=== PATIENT | male | born 1980 | race African-American/Black ===

== ENCOUNTER 2016-11-11 18:15 | Emergency (ER) | payer OTHER ==
[~2016-11-11] VITALS: Ht 172.7 cm; Wt 81.3 kg
[2016-11-11 18:18] VITALS: BP 186/98; PULSE 130; RESP 17; TEMP 99.2; O2SAT 98
[2016-11-11] MEDS ORDERED: IBUPROFEN 800 MG TAB PO ONE (19:45)
[2016-11-11] MEDS ORDERED: SODIUM CHLOR 0.9% 1000 ML INJ 1,000 ML IV ONE (19:45)
--- NOTE | 2016-11-11 19:56 | PD ---
HPI Chief Complaint: Cold / Flu Symptoms Time Seen by Provider: 19:52 Travel History International Travel<30 days: No Contact w/Intl Traveler<30days: No Traveled to known affect area: No History of Present Illness HPI 36-year-old black male presents to emergency department accompanied by significant other for evaluation of sore throat and fever. He has been sick now for nearly 2 weeks. He has had subjective fever and chills, headache, sore throat, cough, congestion, occasional wheezing, nausea, myalgias, arthralgias and general malaise. He denies any ear pain. No vomiting. No abdominal pain. No dysuria or frequency. His significant other who is a pharmacist at [employer] states that she is concerned because he has a history of uncontrolled hypertension and hypothyroidism which may be compounding his illness. She is requesting laboratory testing. [facility] Past Medical History Narrative Medical Hypertension, hypothyroidism Tetanus Vaccination: < 5 Years Past Surgical History Surgical History: No Previous Surgery Social History Alcohol Use: Yes Tobacco Use: No Allergies-Medications (Allergen,Severity, Reaction): Coded Allergies: No Known Allergies (Unverified , 11/11/16) Reported Meds & Prescriptions Reported Meds & Active Scripts Active No Active Prescriptions or Reported Medications Review of Systems Except as stated in HPI: all other systems reviewed are Neg Physical Exam Narrative GENERAL: Well-developed, well-nourished in no apparent distress. Nontoxic appearing. HEAD: Normocephalic, atraumatic. EYES: Pupils equal round and reactive. Extraocular motions intact. No scleral icterus. No injection or drainage. ENT: Nose clear. Throat mild erythema, no tonsillar hypertrophy or exudate. Uvula midline. Airway patent. NECK: Trachea midline. Supple, nontender, moves head freely. No central bony tenderness or spasm. CARDIOVASCULAR: Regular tachycardic Rate and rhythm without murmurs, gallops, or rubs. RESPIRATORY: Clear to auscultation. Breath sounds equal bilaterally. No wheezes , rales, or rhonchi. GASTROINTESTINAL: Abdomen soft, non-tender, nondistended. No hepato-splenomegaly , or palpable masses. No guarding. EXTREMITIES: No clubbing, cyanosis, or edema. No joint tenderness. BACK: Nontender without deformity. No flank tenderness. NEUROLOGICAL: Awake, alert and oriented x 3 .Cranial nerves grossly intact. Motor and sensory grossly within normal limits. Normal speech. Data Data Last Documented VS Vital Signs Date Time Temp Pulse Resp B/P Pulse Ox O2 Delivery O2 Flow Rate FiO2 11/11/16 21:37 96 18 128/82 98 Room Air 11/11/16 18:18 99.2 Orders Complete Blood Count With Diff (11/11/16 19:31) Comprehensive Metabolic Panel (11/11/16 19:31) Group A Rapid Strep Screen (11/11/16 19:31) Influenzae A/B Antigen (11/11/16 19:31) Thyroid Stimulating Hormone (11/11/16 19:31) Ibuprofen (Motrin) (11/11/16 19:45) Sodium Chlor 0.9% 1000 Ml Inj (Ns 1000 M (11/11/16 19:45) Strep Culture (Group A) (11/11/16 20:15) Labs Laboratory Tests Test 11/11/16 20:15 White Blood Count 8.9 TH/MM3 Red Blood Count 4.95 MIL/MM3 Hemoglobin 15.0 GM/DL Hematocrit 43.5 % Mean Corpuscular Volume 87.9 FL Mean Corpuscular Hemoglobin 30.4 PG Mean Corpuscular Hemoglobin 34.5 % Concent Red Cell Distribution Width 12.6 % Platelet Count 255 TH/MM3 Mean Platelet Volume 9.5 FL Neutrophils (%) (Auto) 84.6 % Lymphocytes (%) (Auto) 10.8 % Monocytes (%) (Auto) 4.4 % Eosinophils (%) (Auto) 0.0 % Basophils (%) (Auto) 0.2 % Neutrophils # (Auto) 7.5 TH/MM3 Lymphocytes # (Auto) 1.0 TH/MM3 Monocytes # (Auto) 0.4 TH/MM3 Eosinophils # (Auto) 0.0 TH/MM3 Basophils # (Auto) 0.0 TH/MM3 CBC Comment DIFF FINAL Differential Comment Sodium Level 137 MEQ/L Potassium Level 3.5 MEQ/L Chloride Level 103 MEQ/L Carbon Dioxide Level 25.5 MEQ/L Anion Gap 9 MEQ/L Blood Urea Nitrogen 12 MG/DL Creatinine 0.86 MG/DL Estimat Glomerular Filtration 122 ML/MIN Rate Random Glucose 95 MG/DL Calcium Level 9.2 MG/DL Total Bilirubin 0.2 MG/DL Aspartate Amino Transf 20 U/L (AST/SGOT) Alanine Aminotransferase 31 U/L (ALT/SGPT) Alkaline Phosphatase 74 U/L Total Protein 8.2 GM/DL Albumin 4.2 GM/DL Thyroid Stimulating Hormone 1.920 uIU/ML 3rd Gen MDM Medical Decision Making Medical Screen Exam Complete: Yes Emergency Medical Condition: Yes Medical Record Reviewed: Yes Interpretation(s) Rapid strep: Negative for group A strep. Influenza: Negative for influenza a and B. Laboratory Tests Test 11/11/16 20:15 White Blood Count 8.9 TH/MM3 Red Blood Count 4.95 MIL/MM3 Hemoglobin 15.0 GM/DL Hematocrit 43.5 % Mean Corpuscular Volume 87.9 FL Mean Corpuscular Hemoglobin 30.4 PG Mean Corpuscular Hemoglobin 34.5 % Concent Red Cell Distribution Width 12.6 % Platelet Count 255 TH/MM3 Mean Platelet Volume 9.5 FL Neutrophils (%) (Auto) 84.6 % Lymphocytes (%) (Auto) 10.8 % Monocytes (%) (Auto) 4.4 % Eosinophils (%) (Auto) 0.0 % Basophils (%) (Auto) 0.2 % Neutrophils # (Auto) 7.5 TH/MM3 Lymphocytes # (Auto) 1.0 TH/MM3 Monocytes # (Auto) 0.4 TH/MM3 Eosinophils # (Auto) 0.0 TH/MM3 Basophils # (Auto) 0.0 TH/MM3 CBC Comment DIFF FINAL Differential Comment Sodium Level 137 MEQ/L Potassium Level 3.5 MEQ/L Chloride Level 103 MEQ/L Carbon Dioxide Level 25.5 MEQ/L Anion Gap 9 MEQ/L Blood Urea Nitrogen 12 MG/DL Creatinine 0.86 MG/DL Estimat Glomerular Filtration 122 ML/MIN Rate Random Glucose 95 MG/DL Calcium Level 9.2 MG/DL Total Bilirubin 0.2 MG/DL Aspartate Amino Transf 20 U/L (AST/SGOT) Alanine Aminotransferase 31 U/L (ALT/SGPT) Alkaline Phosphatase 74 U/L Total Protein 8.2 GM/DL Albumin 4.2 GM/DL Thyroid Stimulating Hormone 1.920 uIU/ML 3rd Gen Differential Diagnosis MDM: Moderate Differential diagnoses: Influenza, influenza-like illness, strep throat, bronchitis, electrolyte abnormality, hypothyroidism Narrative Course IV access is obtained. Patient's given a liter of normal saline, Motrin 800 mg by mouth. Routine laboratory tests including CBC, chemistry, strep, influenza, and TSH. Patient laboratory tests are within normal limits. TSH is normal. Influenza and strep are negative. The patient is feeling much better. His vital signs are normalizing. Patient given a copy of his laboratory tests. This is viral syndrome Diagnosis Primary Impression: Acute viral syndrome Patient Instructions: General Instructions Departure Forms: Tests/Procedures, Work Release Special Instructions: No work 2-3 days. Additional Instructions: Rest. Increase fluids. 3 Advil every 6 hours. Follow-up with a medical doctor in one week. Return to the ER for any problems. Med/Other Pt SpecificInfo: No Meds Exist/No RX given Scripts No Active Prescriptions or Reported Meds Disposition: 01 DISCHARGE HOME Condition: Stable Ciro Boone Nov 11, 2016 19:56
[2016-11-11 21:37] VITALS: BP 128/82; PULSE 96; RESP 18; O2SAT 98
[2016-11-11 21:37] LABS: AUTOMATED NEUTROPHIL # 7.5 TH/MM3 (1.8-7.7); BASOPHIL % 0.2 % (0.0-2.0); HEMATOCRIT 43.5 % (39.0-51.0); HEMO FLAGS DIFF FINAL; LYMPH % 10.8 % (9.0-44.0); MEAN CELL VOLUME 87.9 FL (80.0-100.0); MEAN CORPUSCULAR HEMOGLOBIN 30.4 PG (27.0-34.0); MEAN CORPUSCULAR HGB CONC 34.5 % (32.0-36.0); MONO % 4.4 % (0.0-8.0); NEUT % 84.6 % (16.0-70.0); PLATELET COUNT 255 TH/MM3 (150-450); RED BLOOD COUNT 4.95 MIL/MM3 (4.50-5.90); RED CELL DISTRIBUTION WIDTH 12.6 % (11.6-17.2); WHITE BLOOD COUNT 8.9 TH/MM3 (4.0-11.0)
[2016-11-11 22:02] LABS: ALT (GPT) 31 U/L (12-78); ANION GAP 9 MEQ/L (5-15); AST (GOT) 20 U/L (15-37); BICARBONATE 25.5 MEQ/L (21.0-32.0); BLOOD UREA NITROGEN 12 MG/DL (7-18); CHLORIDE 103 MEQ/L (98-107); GLOMERULAR FILTRATION RATE 122 ML/MIN (>89); POTASSIUM 3.5 MEQ/L (3.5-5.1); SODIUM (NA) 137 MEQ/L (136-145)
[2016-11-11 22:12] LABS: ALKALINE PHOSPHATASE 74 U/L (45-117); TOTAL BILIRUBIN ADULT 0.2 MG/DL (0.2-1.0)
== END 2016-11-11 22:43 | disposition home or self-care (01) ==
LOC: NEPB 18:15
DX: B34.9 Viral infection, unspecified (principal); I10 Essential (primary) hypertension; E03.9 Hypothyroidism, unspecified
CPT/HCPCS: 80053; 84443; 85025; 87081; 87804; 87880; 99283; J7030

== ENCOUNTER 2018-03-12 15:20 | Emergency (ER) | payer OTHER ==
[~2018-03-12] VITALS: Ht 172.7 cm; Wt 75.0 kg
[2018-03-12 15:23] VITALS: BP 145/100; PULSE 86; RESP 18; TEMP 98.2; O2SAT 100
--- NOTE | 2018-03-12 15:39 | PD ---
HPI Chief Complaint: Psychiatric Symptoms Time Seen by Provider: 15:28 Travel History International Travel<30 days: No Contact w/Intl Traveler<30days: No Traveled to known affect area: No History of Present Illness HPI 37-year-old male presents voluntarily for psychiatric evaluation. History is obtained by family members and patient. Over the past 1-2 weeks the patient has been feeling depressed. He reports that he has had trouble sleeping and he has been hallucinating. Specifically he says that it looks like his skin is peeling although it is not. The patient's family member reports that she is concerned because he has been acting very bizarre over the past few weeks, he recently started giving away all of his possessions. She reports that he never has acted this way in the past. 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 The patient denies any drug or alcohol use. He denies any suicidal homicidal ideation. He has no medical complaints at this time. PFSH Past Medical History Diminished Hearing: No Immunizations Current: Yes Social History Alcohol Use: Yes Tobacco Use: No Substance Use: No Allergies-Medications (Allergen,Severity, Reaction): Coded Allergies: No Known Allergies (Unverified Adverse Reaction, Unknown, 03/12/18) Reported Meds & Prescriptions Reported Meds & Active Scripts Active No Active Prescriptions or Reported Medications Review of Systems Except as stated in HPI: all other systems reviewed are Neg Physical Exam Narrative GENERAL: Well-developed well-nourished male in no acute distress SKIN: Warm and dry. HEAD: Atraumatic. Normocephalic. EYES: Pupils equal and round. No scleral icterus. No injection or drainage. ENT: No nasal bleeding or discharge. Mucous membranes pink and moist. NECK: Trachea midline. No JVD. CARDIOVASCULAR: Regular rate and rhythm. No murmur appreciated. RESPIRATORY: No accessory muscle use. Clear to auscultation. Breath sounds equal bilaterally. GASTROINTESTINAL: Abdomen soft, non-tender, nondistended. Hepatic and splenic margins not palpable. MUSCULOSKELETAL: No obvious deformities. No clubbing. No cyanosis. No edema. NEUROLOGICAL: Awake and alert. No obvious cranial nerve deficits. Motor grossly within normal limits. Normal speech. Data Data Last Documented VS Vital Signs Date Time Temp Pulse Resp B/P (MAP) Pulse Ox O2 Delivery O2 Flow Rate FiO2 03/12/18 19:26 99.0 85 16 124/86 (99) 100 Room Air Orders Orders Complete Blood Count With Diff (03/12/18 15:36) Comprehensive Metabolic Panel (03/12/18 15:36) Thyroid Stimulating Hormone (03/12/18 15:36) Psych Screen (03/12/18 15:36) Drug Screen, Random Urine (03/12/18 15:36) Alcohol (Ethanol) (03/12/18 15:36) Lorazepam Inj (Ativan Inj) (03/12/18 15:45) Ct Brain W/O Iv Contrast(Rout) (03/12/18 ) Diet Regular Basic (03/12/18 Dinner) Potassium Chloride (Kcl) (03/12/18 16:45) C Diff Toxin Pcr (03/12/18 17:22) Enteric Path (Stool) (03/12/18 17:22) Labs Laboratory Tests Test 03/12/18 15:50 03/12/18 17:00 White Blood Count 5.2 TH/MM3 Red Blood Count 5.17 MIL/MM3 Hemoglobin 15.8 GM/DL Hematocrit 46.6 % Mean Corpuscular Volume 90.2 FL Mean Corpuscular Hemoglobin 30.5 PG Mean Corpuscular Hemoglobin Concent 33.8 % Red Cell Distribution Width 13.0 % Platelet Count 317 TH/MM3 Mean Platelet Volume 8.2 FL Neutrophils (%) (Auto) 64.9 % Lymphocytes (%) (Auto) 25.2 % Monocytes (%) (Auto) 9.6 % Eosinophils (%) (Auto) 0.1 % Basophils (%) (Auto) 0.2 % Neutrophils # (Auto) 3.4 TH/MM3 Lymphocytes # (Auto) 1.3 TH/MM3 Monocytes # (Auto) 0.5 TH/MM3 Eosinophils # (Auto) 0.0 TH/MM3 Basophils # (Auto) 0.0 TH/MM3 CBC Comment DIFF FINAL Differential Comment Blood Urea Nitrogen 12 MG/DL Creatinine 1.03 MG/DL Random Glucose 153 MG/DL Total Protein 8.0 GM/DL Albumin 4.0 GM/DL Calcium Level 8.6 MG/DL Alkaline Phosphatase 70 U/L Aspartate Amino Transf (AST/SGOT) 35 U/L Alanine Aminotransferase (ALT/SGPT) 44 U/L Total Bilirubin 0.4 MG/DL Sodium Level 138 MEQ/L Potassium Level 3.3 MEQ/L Chloride Level 101 MEQ/L Carbon Dioxide Level 24.9 MEQ/L Anion Gap 12 MEQ/L Estimat Glomerular Filtration Rate 98 ML/MIN Thyroid Stimulating Hormone 3rd Gen 3.640 uIU/ML Ethyl Alcohol Level LESS THAN 3 MG/DL Stool C. difficile Toxin (PCR) NEGATIVE Stl C. difficile Toxin Epiderm 027 PRESUMPTIVE NEGATIVE MDM Medical Decision Making Medical Screen Exam Complete: Yes Emergency Medical Condition: Yes Medical Record Reviewed: Yes Differential Diagnosis Acute psychosis, encephalitis, meningitis, adjustment reaction, major depressive disorder, bipolar disorder, substance-induced mood disorder Narrative Course 37-year-old male presents with family members voluntarily requesting psychiatric evaluation. On examination he is acting bizarre. He has been experiencing some hallucinations and feeling of depression. He has been under some stress at work according to his family member. Plan is for lab work, CT the brain. The patient reportedly had a very large bowel movement during his hospitalization, voluminous green diarrhea. The patient denies any history of diarrhea, his history is not entirely reliable. The stool sample will be sent for culture and C. difficile testing for thoroughness. C. difficile PCR is negative. CBC is unremarkable. CMP reveals a potassium 3.3 otherwise unremarkable. Alcohol is normal. CT the brain is normal. The patient is medically cleared for psychiatric disposition. Diagnosis Primary Impression: Medical clearance for psychiatric admission Scripts No Active Prescriptions or Reported Meds Darci Deshpande March 12, 2018 15:39
[2018-03-12] MEDS ORDERED: LORazepam 2 MG/ML VIAL IM ONE (15:45)
[2018-03-12 16:00] LABS: AUTOMATED NEUTROPHIL # 3.4 TH/MM3 (1.8-7.7); BASOPHIL % 0.2 % (0.0-2.0); EOSINOPHIL % 0.1 % (0.0-4.0); HEMATOCRIT 46.6 % (39.0-51.0); HEMOGLOBIN 15.8 GM/DL (13.0-17.0); LYMPH % 25.2 % (9.0-44.0); LYMPHOCYTE # 1.3 TH/MM3 (1.0-4.8); MEAN CELL VOLUME 90.2 FL (80.0-100.0); MEAN CORPUSCULAR HEMOGLOBIN 30.5 PG (27.0-34.0); MEAN CORPUSCULAR HGB CONC 33.8 % (32.0-36.0); MEAN PLATELET VOLUME 8.2 FL (7.0-11.0); MONO % 9.6 % (0.0-8.0); MONOCYTE # 0.5 TH/MM3 (0-0.9); NEUT % 64.9 % (16.0-70.0); PLATELET COUNT 317 TH/MM3 (150-450); RED BLOOD COUNT 5.17 MIL/MM3 (4.50-5.90); WHITE BLOOD COUNT 5.2 TH/MM3 (4.0-11.0)
[2018-03-12 16:18] LABS: AST (GOT) 35 U/L (15-37); BICARBONATE 24.9 MEQ/L (21.0-32.0); BLOOD UREA NITROGEN 12 MG/DL (7-18); CALCIUM 8.6 MG/DL (8.5-10.1); CHLORIDE 101 MEQ/L (98-107); CREATININE 1.03 MG/DL (0.60-1.30); GLOMERULAR FILTRATION RATE 98 ML/MIN (>89); GLUCOSE,RANDOM 153 MG/DL (74-106); SODIUM (NA) 138 MEQ/L (136-145)
[2018-03-12 16:26] LABS: ALKALINE PHOSPHATASE 70 U/L (45-117); ALT (GPT) 44 U/L (12-78); TOTAL BILIRUBIN ADULT 0.4 MG/DL (0.2-1.0)
[2018-03-12] MEDS ORDERED: POTASSIUM CHLORIDE 20 MEQ CONTROLLED RELEASE TAB PO ONE (16:45)
--- NOTE | 2018-03-12 18:31 | RADRPT ---
EXAM DATE/TIME: 03/12/2018 18:21 [place] COMPARISON: No previous studies available for comparison. INDICATIONS : Altered mental status, patient is having hallucinations and feeling depressed. RADIATION DOSE: 46.96 CTDIvol (mGy) MEDICAL HISTORY : None SURGICAL HISTORY : None. ENCOUNTER: Initial ACUITY: 1 day PAIN SCALE: 0/10 LOCATION: cranial TECHNIQUE: Multiple contiguous axial images were obtained of the head. Using automated exposure control and adj ustment of the mA and/or kV according to patient size, radiation dose was kept as low as reasonably a chievable to obtain optimal diagnostic quality images. DICOM format image data is available electro nically for review and comparison. FINDINGS: CEREBRUM: The ventricles are normal for age. No evidence of midline shift, mass lesion, hemorrhage or acute in farction. No extra-axial fluid collections are seen. POSTERIOR FOSSA: The cerebellum and brainstem are intact. The 4th ventricle is midline. The cerebellopontine angle i s unremarkable. EXTRACRANIAL: The visualized portion of the orbits is intact. SKULL: The calvaria is intact. No evidence of skull fracture. CONCLUSION: No acute intracranial findings. Marbin Dumont MD on March 12, 2018 at 18:27 Board Certified Radiologist. This report was verified electronically.
[2018-03-12 19:26] VITALS: BP 124/86; PULSE 85; RESP 16; TEMP 99; O2SAT 100
[2018-03-12] MEDS ORDERED: hydrOXYzine HCL 50 MG/ML VIAL IM ONE (20:00)
[2018-03-13] MEDS: LORazepam 2 MG/ML VIAL IM ONE ×2 (00:22→01:06)
--- NOTE | 2018-03-13 11:48 | PD ---
Physical Exam Time Seen by Provider: 11:47 ADY Lopez has evaluated the patient and cleared the patient for discharge. Data Data Last Documented VS Vital Signs Date Time Temp Pulse Resp B/P (MAP) Pulse Ox O2 Delivery O2 Flow Rate FiO2 03/12/18 19:26 99.0 85 16 124/86 (99) 100 Room Air Orders Orders Complete Blood Count With Diff (03/12/18 15:36) Comprehensive Metabolic Panel (03/12/18 15:36) Thyroid Stimulating Hormone (03/12/18 15:36) Psych Screen (03/12/18 15:36) Drug Screen, Random Urine (03/12/18 15:36) Alcohol (Ethanol) (03/12/18 15:36) Lorazepam Inj (Ativan Inj) (03/12/18 15:45) Ct Brain W/O Iv Contrast(Rout) (03/12/18 ) Diet Regular Basic (03/12/18 Dinner) Potassium Chloride (Kcl) (03/12/18 16:45) C Diff Toxin Pcr (03/12/18 17:22) Enteric Path (Stool) (03/12/18 17:22) Hydroxyzine Hcl Inj (Vistaril Inj) (03/12/18 20:00) Lorazepam Inj (Ativan Inj) (03/12/18 20:15) Diet Regular Basic (03/13/18 Breakfast) Diet Regular Basic (03/13/18 Lunch) Labs Laboratory Tests Test 03/12/18 15:50 03/12/18 17:00 03/13/18 09:30 White Blood Count 5.2 TH/MM3 Red Blood Count 5.17 MIL/MM3 Hemoglobin 15.8 GM/DL Hematocrit 46.6 % Mean Corpuscular Volume 90.2 FL Mean Corpuscular Hemoglobin 30.5 PG Mean Corpuscular Hemoglobin Concent 33.8 % Red Cell Distribution Width 13.0 % Platelet Count 317 TH/MM3 Mean Platelet Volume 8.2 FL Neutrophils (%) (Auto) 64.9 % Lymphocytes (%) (Auto) 25.2 % Monocytes (%) (Auto) 9.6 % Eosinophils (%) (Auto) 0.1 % Basophils (%) (Auto) 0.2 % Neutrophils # (Auto) 3.4 TH/MM3 Lymphocytes # (Auto) 1.3 TH/MM3 Monocytes # (Auto) 0.5 TH/MM3 Eosinophils # (Auto) 0.0 TH/MM3 Basophils # (Auto) 0.0 TH/MM3 CBC Comment DIFF FINAL Differential Comment Blood Urea Nitrogen 12 MG/DL Creatinine 1.03 MG/DL Random Glucose 153 MG/DL Total Protein 8.0 GM/DL Albumin 4.0 GM/DL Calcium Level 8.6 MG/DL Alkaline Phosphatase 70 U/L Aspartate Amino Transf (AST/SGOT) 35 U/L Alanine Aminotransferase (ALT/SGPT) 44 U/L Total Bilirubin 0.4 MG/DL Sodium Level 138 MEQ/L Potassium Level 3.3 MEQ/L Chloride Level 101 MEQ/L Carbon Dioxide Level 24.9 MEQ/L Anion Gap 12 MEQ/L Estimat Glomerular Filtration Rate 98 ML/MIN Thyroid Stimulating Hormone 3rd Gen 3.640 uIU/ML Ethyl Alcohol Level LESS THAN 3 MG/DL Stool C. difficile Toxin (PCR) NEGATIVE Stl C. difficile Toxin Epiderm 027 PRESUMPTIVE NEGATIVE Urine Opiates Screen NEG Urine Barbiturates Screen NEG Urine Amphetamines Screen NEG Urine Benzodiazepines Screen NEG Urine Cocaine Screen NEG Urine Cannabinoids Screen NEG MDM Supervised Visit with DOLLY: No Narrative Course ADY Duval has evaluated the patient and cleared the patient for discharge. Patient contracts safety. Denies suicidal or homicidal ideations. Patient will be provided community resource packet to [facility] for follow-up. Has friends and family for support. Patient was medically cleared by alternate provider prior to psych screening. Patient has been evaluated by psychiatry and and is now cleared for discharge. Diagnosis Primary Impression: Adjustment disorder Qualified Codes: F43.20 - Adjustment disorder, unspecified Referrals: [facility] (Out patient) call for appointment Medication Management [facility] Primary Care Physician Psychiatrist Angela [facility] Patient Instructions: General Instructions, Stress (ED) Departure Forms: Tests/Procedures Additional Instruction: Contract safety to your self and others Follow-up with psychiatry Follow-up with primary care provider Follow-up with Heladio Celis Return to the emergency department immediately with worsening of symptoms Med/Other Pt SpecificInfo: No Change to Meds, No Meds Exist/No RX given Scripts No Active Prescriptions or Reported Meds Disposition: 01 DISCHARGE HOME Condition: Stable Francine Pérez March 13, 2018 11:48
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
== END 2018-03-13 11:59 | disposition home or self-care (01) ==
LOC: NEPD 15:20 → NEPJ 03-13 11:59
DX: F43.20 Adjustment disorder, unspecified (principal)
CPT/HCPCS: 70450; 80053; 80307; 84443; 85025; 87493; 99284; J2060